=== PATIENT | male | born 1975 | race Caucasian/White ===

== ENCOUNTER → 2019-09-19 | Outpatient (CLI) | payer OTHER | LOC: LAB.O 12:31 | PROVIDERS: ATTEND Nurse Practitioner Family | DX: F10.239 Alcohol dependence with withdrawal, unspecified (principal) ==

== ENCOUNTER 2019-09-22 08:45 | Emergency (ER) | payer SELFPAY ==
[2019-09-22] MEDS ORDERED: SODIUM CHLORIDE 0.9% (FLUSH) 10 ML SYG IV PRN (09:04)
[2019-09-22] MEDS ORDERED: SODIUM CHLORIDE 0.9% 1000ML 1,000 ML IVS PRN (09:09)
[2019-09-22 09:20] VITALS: TEMP 97.7
--- NOTE | 2019-09-22 09:46 | RAD ---
EXAM DESCRIPTION: Chest,1 View CLINICAL HISTORY: 44 years Male, sob COMPARISON: None. TECHNIQUE: AP portable chest. FINDINGS/IMPRESSION: Significant S-shaped scoliosis of the spine partially limits evaluation. Mild central pulmonary vascular congestion. No focal consolidation, significant pneumothorax or pleural effusion seen. Scattered calcified granulomas. The heart is normal in size. Chronic right-sided mid rib fracture. Electronically signed by: Santo Castellanos DO 09/22/2019 9:44 AM [facility]
--- NOTE | 2019-09-22 10:10 | CT ---
EXAM DESCRIPTION: CT head without contrast. CLINICAL HISTORY: seizure . COMPARISON: None Available. TECHNIQUE: Contiguous axial sections are obtained as per protocol. Sagittal and coronal reformations are submitted Automatic exposure control (AEC), mA and/or kV adjustment by patient size, and/or iterative reconstructive technique was used, per departmental dose optimization program, during the performance of the CT examination. Motion artifacts are noted on several sections. FINDINGS: Ventricles, sulci and cisterns appear normal. Normal barlow-white matter differentiation is noted. No evidence of intra or extra-axial hemorrhage, hematoma, mass, mass effect or midline shift is noted. The posterior fossa structures appear normal. The bony calvarium appears intact. The soft tissues of the scalp appear unremarkable. Normal appearance of the orbits are noted. The paranasal sinuses and mastoids appear normal. IMPRESSION: Unremarkable non contrast enhanced CT examination of brain. Electronically signed by: Jodi Phelan MD 09/22/2019 10:08 AM [facility]
--- NOTE | 2019-09-22 10:18 | ED.PDOC ---
History of Present Illness - General Chief Complaint: Neuro Symptoms/Deficits Stated Complaint: Seizure, alcohol withdrawals, anxiety Time Seen by Provider: 09/22/19 09:04 - History of Present Illness Initial Comments: Pt brought by EMS after having seizure this morning and severe anxiety , as per pt he quit alcohol 2 days back , had seizure before also when quit alcohol. 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 No fever or chills or unconsciousness, no urine or stool incontinence or tongue biting . Timing/Duration: 4-6 hours Severity: severe Improving Factors: nothing Worsening Factors: nothing Associated Symptoms: weakness Allergies/Adverse Reactions: Allergies Penicillins Allergy (Verified 09/22/19 09:24) Home Medications: Ambulatory Orders Quetiapine Fumarate [Seroquel] 150 mg PO TID 09/22/19 Review of Systems - Review of Systems Constitutional: States: weakness EENTM: States: no symptoms reported Respiratory: States: no symptoms reported Cardiology: States: no symptoms reported Gastrointestinal/Abdominal: States: no symptoms reported Genitourinary: States: no symptoms reported Musculoskeletal: States: no symptoms reported Skin: States: no symptoms reported Neurological: States: see HPI, anxiety Endocrine: States: no symptoms reported Hematologic/Lymphatic: States: no symptoms reported Past Medical History (General) - Patient Medical History Hx Seizures: Yes Hx Stroke: No Hx Cardiac Disorders: No Hx Hypertension: Yes Hx Diabetes: No Hx Cancer: No Surgical History: no surgical history - Social History Hx Tobacco Use: Yes Hx Alcohol Use: Yes Hx Substance Use: Yes Hx Substance Use Treatment: Yes Hx Depression: Yes - Female History Patient is a Female of Child Bearing Age (10 -59 yrs old): No Patient : No Family Medical History - Family History Mother Family History: Unknown Living Status: Unknown Physical Exam - Physical Exam General Appearance: Anxious, Well Hydrated, Well Nourished Eye Exam: bilateral normal Ears, Nose, Throat: hearing grossly normal, normal ENT inspection Neck: non-tender, full range of motion, supple, normal inspection Respiratory: lungs clear, normal breath sounds, no respiratory distress, no accessory muscle use Cardiovascular/Chest: regular rate, rhythm, no edema, no gallop, no JVD, no murmur Gastrointestinal/Abdominal: non tender, soft, no organomegaly, no pulsatile mass Back Exam: normal inspection, no CVA tenderness Extremity: normal range of motion, non-tender, normal inspection Neurologic: no motor/sensory deficits, alert, oriented x 3, other - very anxious and trembling Skin Exam: normal color Lymphatic: no adenopathy Progress - Results/Orders Results/Orders: 09/22/19 09:04 Telemetry .ONCE Sodium Chloride 0.9% (Flush) [Saline Flush Syringe] 10 ml IV PRN PRN 09/22/19 09:09 Sodium Chloride 0.9% 1000ML [Ns 1000 ml] 1,000 ml IVS .QD 09/22/19 09:15 EKG STAT Laboratory Results WBC 4.6 K/mm3 (4.8-10.8) L 09/22/19 09:36 RBC 4.31 M/mm3 (4.70-6.10) L 09/22/19 09:36 Hgb 13.3 gm/dL (14.0-18.0) L 09/22/19 09:36 Hct 39.4 % (42.0-52.0) L 09/22/19 09:36 MCV 91.4 fl (80.0-94.0) 09/22/19 09:36 MCH 30.9 pg (27.0-31.0) 09/22/19 09:36 MCHC 33.7 g/dL (33.0-37.0) 09/22/19 09:36 RDW 13.6 % (11.5-14.5) 09/22/19 09:36 Plt Count 281 K/mm3 (130-400) 09/22/19 09:36 MPV 7.9 fl (7.40-10.4) 09/22/19 09:36 Absolute Neuts (auto) 2.70 K/uL (1.8-6.8) 09/22/19 09:36 Absolute Lymphs (auto) 1.20 K/uL (1.0-3.4) 09/22/19 09:36 Absolute Monos (auto) 0.60 K/uL (0.2-0.8) 09/22/19 09:36 Absolute Eos (auto) 0.00 K/uL (0.0-0.4) 09/22/19 09:36 Absolute Basos (auto) 0.10 K/uL (0.0-0.1) 09/22/19 09:36 Neutrophils % 58.9 % (42.0-78.0) 09/22/19 09:36 Lymphocytes % 26.8 % (20.0-50.0) 09/22/19 09:36 Monocytes % 12.4 % (2.0-9.0) H 09/22/19 09:36 Eosinophils % 0.7 % (1.0-5.0) L 09/22/19 09:36 Basophils % 1.2 % (0.0-2.0) 09/22/19 09:36 Sodium 141 mmol/L (135-145) 09/22/19 09:36 Potassium 3.0 mmol/L (3.6-5.0) L D 09/22/19 09:36 Chloride 107 mmol/L (101-111) 09/22/19 09:36 Carbon Dioxide 23 mmol/L (21-31) 09/22/19 09:36 Anion Gap 14.0 (12-18) 09/22/19 09:36 BUN 9 mg/dL (7-18) 09/22/19 09:36 Creatinine 0.70 mg/dL (0.6-1.3) 09/22/19 09:36 BUN/Creatinine Ratio 12.9 (10-20) 09/22/19 09:36 Random Glucose 91 mg/dL (70-105) 09/22/19 09:36 Serum Osmolality 279.5 mOsm/L (275-295) 09/22/19 09:36 Calcium 9.1 mg/dL (8.4-10.2) 09/22/19 09:36 Total Bilirubin 0.8 mg/dL (0.2-1.0) 09/22/19 09:36 AST 23 IU/L (10-42) 09/22/19 09:36 ALT 18 IU/L (10-60) 09/22/19 09:36 Alkaline Phosphatase 54 IU/L (42-121) D 09/22/19 09:36 Creatine Kinase 148 IU/L (38-174) 09/22/19 09:36 CK-MB (CK-2) 3.0 ng/mL (0.0-4.4) 09/22/19 09:36 CK-MB (CK-2) % Not Reportable 09/22/19 09:36 Troponin I < 0.02 ng/mL (0.01-0.05) 09/22/19 09:36 Serum Total Protein 6.9 gm/dL (6.4-8.2) 09/22/19 09:36 Albumin 4.1 g/dl (3.2-5.5) 09/22/19 09:36 Globulin 2.8 gm/dL (2.3-3.5) 09/22/19 09:36 Albumin/Globulin Ratio 1.5 (1.1-1.9) 09/22/19 09:36 Urine Color Yellow (Yellow) 09/22/19 09:43 Urine Appearance Clear (Clear) 09/22/19 09:43 Urine pH 7.0 (4.5-7.8) 09/22/19 09:43 Ur Specific [place] <= 1.005 (1.005-1.030) 09/22/19 09:43 Urine Protein Negative mg/dL 09/22/19 09:43 Urine Glucose (UA) Negative mg/dL (Negative) 09/22/19 09:43 Urine Ketones Negative mg/dL (NEGATIVE) 09/22/19 09:43 Urine Blood Negative (Negative) 09/22/19 09:43 Urine Nitrite Negative 09/22/19 09:43 Urine Bilirubin Negative (NEGATIVE) 09/22/19 09:43 Urine Urobilinogen 0.2 mg/dL (0.2-1.0) 09/22/19 09:43 Ur Leukocyte Esterase Negative (Negative) 09/22/19 09:43 Urine RBC 0 /hpf 09/22/19 09:43 Urine WBC 0 /hpf 09/22/19 09:43 Ur Epithelial Cells 0 /hpf 09/22/19 09:43 Urine Bacteria 0 09/22/19 09:43 Salicylates 1.1 mg/dL (0-29.9) 09/22/19 09:36 Urine Opiates Screen Negative ng/mL (1999) 09/22/19 09:36 Acetaminophen < 10.0 ug/mL (10.0-30.0) L 09/22/19 09:36 Urine Barbiturates Negative ng/mL (200) 09/22/19 09:36 Ur Phencyclidine Scrn Negative ng/mL (25) 09/22/19 09:36 U Amphetamin/Meth Scrn Negative ng/mL (1000) 09/22/19 09:36 U Benzodiazepines Scrn Positive ng/mL (200) H 09/22/19 09:36 U Cocaine Metab Screen Negative ng/mL (300) 09/22/19 09:36 U Cannabinoids Screen Negative ng/mL (50) 09/22/19 09:36 Ethyl Alcohol 68.30 mg/dL (0-79) 09/22/19 09:36 - EKG/XRAY/CT EKG: Sinus, nonspecific ST T wave Chg Departure - Departure Clinical Impression: Alcohol withdrawal, Hallucinations, Alcohol abuse, Anxiety, Seizure disorder Disposition: Left Against Medical Advice Departure Forms: ED Discharge - Pt. Copy, Patient Portal Self Enrollment Referrals: HIEU WAGNER IV, PARI [facility]UEL [facility] [Primary Care Provider] - 1-2 Weeks Home Medications: Ambulatory Orders Quetiapine Fumarate [Seroquel] 150 mg PO TID 09/22/19 Comments: Pt refused for the transfer and signed AMA
[2019-09-22] MEDS ORDERED: KETOROLAC TROMETHAMINE INJ 30 MG/ML VIAL IV ONE (11:03)
[2019-09-22 11:33] VITALS: BP 130/88
[2019-09-22 11:34] VITALS: O2SAT 100
== END 2019-09-22 11:14 | disposition left against medical advice (07) ==
LOC: ER 08:45
DX: F10.239 Alcohol dependence with withdrawal, unspecified (principal); F10.251 Alcohol dependence with alcohol-induced psychotic disorder with hallucinations; G40.909 Epilepsy, unspecified, not intractable, without status epilepticus; F41.9 Anxiety disorder, unspecified; I10 Essential (primary) hypertension; F32.9 Major depressive disorder, single episode, unspecified; Z53.29 Procedure and treatment not carried out because of patient's decision for other reasons; Z87.891 Personal history of nicotine dependence; Z88.0 Allergy status to penicillin
CPT/HCPCS: 36415; 70450; 71045; 80053; 80307; 80320; 80329; 81001; 82550; 82553; 84484; 85025; 93005; J2060; J7030